=== PATIENT | female | born 1960 | race Hispanic/Latino ===

== ENCOUNTER 2018-06-26 12:31 | Inpatient (IN) | payer OTHER ==
--- NOTE | 2018-06-26 12:49 | ED PDOC ---
HPI: SOB/CHF/COPD Time Seen by Provider: 06/26/18 12:34 Chief Complaint (Provider): Shortness Of Breath History Per: Patient History/Exam Limitations: no limitations Onset/Duration Of Symptoms: Days (x2 months) Additional Complaint(s): 58 year old female with a PMHx of asthma, bowel obstruction, ovarian cancer, pneumonia, bronchitis, and thyroid disease, presenting for evaluation of gradually worsening shortness of breath x1 month. Patient reports she had bowel obstruction surgery late 04/2018 which she believes to be the cause of her gradually worsening shortness of breath, as well as her current edema. Patient s tates she usually uses Albuterol 3-4 times daily with relief, but over the past few days her symptoms have worsened and she is now unable to walk without becoming very short of breath. Patient states she went to urgent care yesterday and had a chest x-ray performed, but was told they would not be able to interpret the x-ray without a baseline to compare it to due to her power port. Of note, patient also reports she has been receiving chemotherapy for her recently diagnosed ovarian cancer at [facility] and has been having intermittent nausea since. Patient otherwise denies any current fevers, chills, chest pain, vomiting, diarrhea, dizziness, or urinary complaints. PMD: Dr. Nathan Mcdonald Oncologist: [facility] Past Medical History Reviewed: Historical Data, Nursing Documentation, Vital Signs - Medical History PMH: Arthritis (right knee), Asthma, Bronchitis, Hyperthyroidism, Hypothyroidism, Malignancy (ovarian), Obstructive Bowel, Pneumonia Denies: COPD, Emphysema, Pulmonary Embolism, Chronic Kidney Disease, Sleep Apnea - Surgical History Surgical History: No Surg Hx - Family History Family History: States: Unknown Family Hx - Social History Current smoker - smoking cessation education provided: No Alcohol: None Drugs: Denies - Immunization History Hx Influenza Vaccination: No - Home Medications Home Medications: Ambulatory Orders Medication Instructions Recorded Albuterol 0.083% [Albuterol 0.083% 3 ml IH Q4 PRN 06/26/18 Inhal Dina (2.5 mg/3 ml) UD] Apixaban [Eliquis] 5 mg PO Q12 06/26/18 Azithromycin [Z-Kartik] 250 mg PO ASDIR 06/26/18 Codeine Phosphate/Guaifenesin 10 ml PO Q6 PRN 06/26/18 [Codeine-Guaifen 10-100 mg/5 ml] HYDROmorphone [Dilaudid] 2 mg PO Q4 PRN 06/26/18 LORazepam [Ativan] 0.25 mg PO Q12 PRN 06/26/18 Levothyroxine Sodium [Synthroid] 300 mcg PO DAILY 06/26/18 Multivitamin [Multi-Vitamin Daily] 1 tab PO DAILY 06/26/18 Ondansetron [Zofran Tab] 8 mg PO Q8 PRN 06/26/18 Prochlorperazine [Compazine] 10 mg PO Q6 PRN 06/26/18 Sennosides [Senna] 1 tab PO Q12 06/26/18 Zolpidem Tartrate [Ambien Cr] 12.5 mg PO HS 06/26/18 traMADol [Ultram] 100 mg PO Q6 PRN 06/26/18 - Allergies Allergies/Adverse Reactions: Allergies Allergy/AdvReac Type Severity Reaction Status Date / Time cefepime Allergy SHORTNESS Verified 06/26/18 12:55 OF BREATH Review of Systems ROS Statement: Except As Marked, All Systems Reviewed And Found Negative Constitutional: Negative for: Fever, Chills Cardiovascular: Negative for: Chest Pain Respiratory: Positive for: Cough, Sputum Gastrointestinal: Negative for: Vomiting, Abdominal Pain, Diarrhea Genitourinary Female: Negative for: Dysuria, Frequency, Incontinence, Hematuria Skin: Positive for: Other (peripheral edema) Physical Exam - Reviewed Nursing Documentation Reviewed: Yes Vital Signs Reviewed: Yes - Physical Exam Appears: Positive for: Non-toxic, In Acute Distress (respiratory distress) Head Exam: Positive for: ATRAUMATIC, NORMAL INSPECTION, NORMOCEPHALIC Skin: Positive for: Normal Color, Warm, Dry. Negative for: Rash Eye Exam: Positive for: EOMI, Normal appearance, PERRL ENT: Positive for: Normal ENT Inspection Neck: Positive for: Normal, Painless ROM, Supple Cardiovascular/Chest: Positive for: Regular Rate, Rhythm. Negative for: Murmur Respiratory: Positive for: Crackles (faint bilaterally), Wheezing (diffuse bilaterally; heard anteriorly and posteriorly), Respiratory Distress, Other (tachypneic; good air entry bilaterally) Gastrointestinal/Abdominal: Positive for: Normal Exam, Soft. Negative for: Tenderness Back: Positive for: Normal Inspection. Negative for: L CVA Tenderness, R CVA Tenderness, Vertebral Tenderness Extremity: Positive for: Normal ROM, Pedal Edema (3+ pitting edema to bilateral lower extremities). Negative for: Tenderness, Calf Tenderness, Deformity Neurologic/Psych: Positive for: Alert, Oriented (x3). Negative for: Motor/Sensory Deficits - Laboratory Results Result Diagrams: 06/26/18 14:10 06/26/18 14:10 - ECG O2 Sat by Pulse Oximetry: 97 (RA) Pulse Ox Interpretation: Normal Medical Decision Making Medical Decision Makin Impression: Shortness of breath. Differential diagnoses include, but are not limited to acute asthma exacerbation, reactive airway disease, pneumonia, influenza, and PE secondary to history of PE and cancer. Plan: -VBG shock panel -EKG -BNP -CMP -CBC -CXR -Duoneb 3mL IH -Magnesium sulfuate 2gm IV -Solu-Medrol 125mg IVP -Zithromax 500mg IVPB -Blood culture -Influenza A B -US Duplex Lower Extremity -Reevaluation Scribe Attestation: Documented by Isidoro Rolle, acting as a scribe for Kajal Daniel MD. Provider Scribe Attestation: All medical record entries made by the Scribe were at my direction and personally dictated by me. I have reviewed the chart and agree that the record accurately reflects my personal performance of the history, physical exam, medical decision making, and the department course for this patient. I have also personally directed, reviewed, and agree with the discharge instructions and disposition. patient with comorbid conditions and various contributing factors to her shortness of breath, including h/o asthma, current anemia, recent URI as diagnosed by urgent care center. Patient already on Eliquis for PE diagnosed recently. US of JORJE pending. Will admit to med service (all her MDs are based out in [place] Disposition - Clinical Impression Clinical Impression: Acute bronchospasm, Anemia, Ovarian cancer - Patient ED Disposition Is Patient to be Admitted: Yes Doctor Will See Patient In The: Hospital - Disposition Disposition: Transfer of Care Disposition Time: 14:52 Condition: GUARDED - Pt Status Changed To: Hospital Disposition Of: Inpatient - Admit Certification Admit to Inpatient:: After my assessment, the patient will require hospitalization for at least two midnights. This is because of the severity of symptoms shown, intensity of services needed, and/or the medical risk in this patient being treated as an outpatient. - POA Present On Arrival: None
[2018-06-26] MEDS ORDERED: Albuterol-Ipratrop 3 mg / 0.5 (3 ml) UD INH STA ×4 (12:59→16:36)
[2018-06-26] MEDS ORDERED: Magnesium Sulfate 2 gm/50 ml 2 GM/50 ML BAG ONE (13:03)
[2018-06-26] MEDS ORDERED: Azithromycin 500 MG in Sodium Chloride 0.9% 250 ML IVPB STA (13:03)
[2018-06-26] MEDS ORDERED: Magnesium Sulfate 2 gm/50 ml 2 GM/50 ML BAG IV ONE (13:15)
[2018-06-26 14:01] LABS: VENOUS BLOOD GAS BASE EXCESS -8.1 mmol/L (0.0-2.0); VENOUS BLOOD GAS PCO2 91 mmHg (40-60); VENOUS BLOOD GAS PO2 50 mm/Hg (30-55); VENOUS BLOOD PH 7.04 (7.32-7.43)
[2018-06-26 14:18] LABS: BASO % 0.9 % (0.0-2.0); EOS # 0.2 K/uL (0.0-0.7); HEMOGLOBIN 8.6 g/dL (12.0-16.0); LYMPH # 0.6 K/uL (1.0-4.3); LYMPH % 14.8 % (20.0-40.0); MEAN CORPUSCULAR HEMOGLOBIN 30.7 pg (27.0-31.0); MEAN CORPUSCULAR HGB CONC 33.3 g/dL (33.0-37.0); MEAN PLATELET VOLUME 6.5 fl (7.2-11.7); MONO # 0.3 K/uL (0.0-0.8); MONO % 7.3 % (0.0-10.0); NEUT # 2.7 K/uL (1.8-7.0); NRBC % 0.4 % (0.0-0.0); RBC 2.8 Mil/uL (3.80-5.20); RED CELL DISTRIBUTION WIDTH 18.3 % (11.5-14.5); WHITE BLOOD COUNT 3.8 K/uL (4.8-10.8)
[2018-06-26 14:28] LABS: ALB/GLOB RATIO 1.2 (1.0-2.1); ALBUMIN 3.4 g/dL (3.5-5.0); ALT/SGPT 32 U/L (9-52); AST/SGOT 31 U/L (14-36); BLOOD UREA NITROGEN 8 mg/dl (7-17); GFR NON-AFRICAN AMERICAN > 60
--- NOTE | 2018-06-26 14:29 | RAD ---
Date of service: 06/26/2018 PROCEDURE: CHEST RADIOGRAPH, 1 VIEW HISTORY: shortness of breath, wheezing COMPARISON: 05/21/2014 FINDINGS: LUNGS: Clear. PLEURA: No pneumothorax or pleural fluid seen. CARDIOVASCULAR: No radiographic findings to suggest acute or significant cardiovascular disease. Venous access catheter in satisfactory position. No significant atherosclerotic change identified. OSSEOUS STRUCTURES: No significant abnormalities. VISUALIZED UPPER ABDOMEN: Normal. OTHER FINDINGS: None. IMPRESSION: No active disease.
[2018-06-26 14:39] LABS: B-TYPE NATRIURETIC PEPTIDE 445 pg/ml (0-900)
[2018-06-26] MEDS ORDERED: Azithromycin 500 MG IV IVPB ONE (15:17)
--- NOTE | 2018-06-26 15:51 | US ---
Date of service: 06/26/2018 PROCEDURE: Bilateral lower extremity venous duplex Doppler. HISTORY: h/o PE, bilateral swelling LE, COMPARISON: 05/21/2014 bilateral lower extremity duplex sonography TECHNIQUE: Bilateral common femoral, superficial femoral, popliteal and posterior tibial veins were evaluated. Flow was assessed with color Doppler, compressibility, assessment of phasic flow and augmentation response. FINDINGS: COMMON FEMORAL VEIN: Right CFV: Unremarkable. Left CFV: Unremarkable. SUPERFICIAL FEMORAL VEIN: Right SFV: Unremarkable. Left SFV: Unremarkable. POPLITEAL VEIN: Right Popliteal: Unremarkable. Left Popliteal: Unremarkable. POSTERIOR TIBIAL VEIN: Right PTV: Unremarkable. Left PTV: Unremarkable. OTHER FINDINGS: None. IMPRESSION: No evidence of deep venous thrombosis.
[2018-06-26] MEDS ORDERED: Albuterol-Ipratrop 3 mg / 0.5 (3 ml) UD ONE (17:27)
--- NOTE | 2018-06-26 19:37 | CARD ---
APPROVED REPORT Date of service: 06/26/2018 EKG Measurement Heart [id number] ID [id number] <Conclusion> Normal sinus rhythm Normal Electrocardiogram
[2018-06-26] MEDS: Albuterol-Ipratrop 3 mg / 0.5 (3 ml) UD INH SCH (20:02)
[2018-06-26] MEDS ORDERED: methylPREDNISolone 60 MG in Sodium Chloride 0.9% 50 ML IV SCH (21:00)
[2018-06-27] MEDS: Albuterol-Ipratrop 3 mg / 0.5 (3 ml) UD INH SCH ×4 (01:16→19:12)
[2018-06-27] MEDS: Levothyroxine 150 MCG TAB PO SCH (05:47)
[2018-06-27 06:19] LABS: BASO % 0.2 % (0.0-2.0); EOS % 0.1 % (0.0-4.0); HEMOGLOBIN 9.3 g/dL (12.0-16.0); LYMPH # 0.4 K/uL (1.0-4.3); LYMPH % 10.4 % (20.0-40.0); MEAN CELL VOLUME 91.4 fl (81.0-99.0); MEAN CORPUSCULAR HEMOGLOBIN 30.6 pg (27.0-31.0); MEAN CORPUSCULAR HGB CONC 33.4 g/dL (33.0-37.0); MEAN PLATELET VOLUME 6.7 fl (7.2-11.7); MONO # 0.1 K/uL (0.0-0.8); MONO % 1.4 % (0.0-10.0); NEUT # 3.2 K/uL (1.8-7.0); NEUT % 87.9 % (50.0-75.0); NRBC % 0.3 % (0.0-0.0); RBC 3.03 Mil/uL (3.80-5.20); RED CELL DISTRIBUTION WIDTH 19.1 % (11.5-14.5); WHITE BLOOD COUNT 3.7 K/uL (4.8-10.8)
[2018-06-27 06:28] LABS: B-TYPE NATRIURETIC PEPTIDE 1200 pg/ml (0-900)
[2018-06-27 06:36] LABS: ALB/GLOB RATIO 1.2 (1.0-2.1); ALBUMIN 3.5 g/dL (3.5-5.0); ALT/SGPT 26 U/L (9-52); AST/SGOT 32 U/L (14-36); BLOOD UREA NITROGEN 7 mg/dl (7-17); CALCIUM 9.2 mg/dL (8.4-10.2); GFR NON-AFRICAN AMERICAN > 60; HDL CHOLESTEROL 43 MG/DL (30-70)
--- NOTE | 2018-06-27 08:18 | CP.PCM.HP ---
History of Present Illness - History of Present Illness History of Present Illness: 58 year old female with a PMHx of asthma, bowel obstruction, ovarian cancer, pneumonia, bronchitis and hypothyroidism presenting to ED for evaluation of gradually worsening shortness of breath x1 month. Patient states she usually uses Albuterol 3-4 times daily with relief, but over the past few days her symptoms have worsened and she is now unable to walk without becoming very short of breath. She reported she had bowel obstruction surgery on 04/2018 and since then has having sob. Patient also reports she has been receiving chemotherapy for her recently diagnosed ovarian cancer at [facility]. Otherwise denies any current fevers, chills, chest pain, vomiting, diarrhea, dizziness, or urinary complaints. PMD: Dr. Nathan Mcdonald Oncologist: [facility] PMH: Arthritis (right knee), Asthma, Bronchitis, Hyperthyroidism, Hypothyroidism, Malignancy (ovarian), Obstructive Bowel, Pneumonia PSH: bowel obstruction last April Meds: see bellow Allergies: cefepime FMH: noncontributory SH: never smoked, denies etoh or ilict drugs Present on Admission - Present on Admission Any Indicators Present on Admission: No Review of Systems - Review of Systems All systems: reviewed and no additional remarkable complaints except (HPI) Past Patient History - Infectious Disease Hx of Infectious Diseases: None - Past Medical History & Family History Past Medical History?: Yes - Past Social History Smoking Status: Never Smoked - CARDIAC Hx Cardiac Disorders: No - PULMONARY Hx Respiratory Disorders: Yes Hx Asthma: Yes Hx Bronchitis: Yes Hx Pneumonia: Yes - NEUROLOGICAL Hx Neurological Disorder: No - HEENT Hx HEENT Problems: No - RENAL Hx Chronic Kidney Disease: No - ENDOCRINE/METABOLIC Hx Endocrine Disorders: Yes Hx Hypothyroidism: Yes - HEMATOLOGICAL/ONCOLOGICAL Hx Blood Disorders: Yes Hx Anemia: Yes - INTEGUMENTARY Hx Dermatological Problems: Yes - MUSCULOSKELETAL/RHEUMATOLOGICAL Hx Musculoskeletal Disorders: No Hx Falls: No - GASTROINTESTINAL Hx Gastrointestinal Disorders: Yes Other/Comment: Bariatric surgery - GENITOURINARY/GYNECOLOGICAL Hx Genitourinary Disorders: No - PSYCHIATRIC Hx Psychophysiologic Disorder: No Hx Substance Use: No - SURGICAL HISTORY Hx Surgeries: Yes Hx Gastric Bypass Surgery: Yes (Sleeve) Hx Herniorrhaphy: Yes Other/Comment: bowel/hernia surgery-06/11/18 - ANESTHESIA Hx Anesthesia: Yes Hx Anesthesia Reactions: No Hx Malignant Hyperthermia: No Meds Allergies/Adverse Reactions: Allergies Allergy/AdvReac Type Severity Reaction Status Date / Time cefepime Allergy SHORTNESS Verified 06/26/18 12:55 OF BREATH Physical Exam - Constitutional Appears: No Acute Distress Additional comments: Morbid obese - Head Exam Head Exam: NORMAL INSPECTION - Eye Exam Eye Exam: EOMI - Respiratory Exam Respiratory Exam: Decreased Breath Sounds, Rhonchi, Wheezes. absent: Respiratory Distress - Cardiovascular Exam Cardiovascular Exam: REGULAR RHYTHM, +S1, +S2 - GI/Abdominal Exam GI & Abdominal Exam: Soft, Tenderness (mild on incisions site). absent: Guarding - Extremities Exam Extremities exam: Positive for: pedal edema. Negative for: calf tenderness - Neurological Exam Neurological exam: Alert, CN II-XII Intact, Oriented x3 - Skin Skin Exam: Dry, Warm Results - Vital Signs Recent Vital Signs: Last Vital Signs Temp 98.1 F 06/27/18 08:00 Pulse 69 06/27/18 08:00 Resp 18 06/27/18 08:00 BP 137/68 06/27/18 08:00 Pulse Ox 95 06/27/18 08:00 - Labs Result Diagrams: 06/27/18 06:00 06/27/18 06:00 Labs: Laboratory Results - last 24 hr 06/26/18 06/26/18 06/26/18 13:54 14:10 14:10 WBC 3.8 L RBC 2.80 L Hgb 8.6 L Hct 25.7 L MCV 92.0 MCH 30.7 MCHC 33.3 RDW 18.3 H Plt Count 227 MPV 6.5 L Neut % (Auto) 72.0 Lymph % (Auto) 14.8 L [place] % (Auto) 7.3 Eos % (Auto) 5.0 H Baso % (Auto) 0.9 Neut # (Auto) 2.7 Lymph # (Auto) 0.6 L [place] # (Auto) 0.3 Eos # (Auto) 0.2 Baso # (Auto) 0.0 pO2 50 VBG pH 7.04 L* VBG pCO2 91 H* VBG HCO3 17.7 VBG Total CO2 27.4 VBG O2 Sat (Calc) 81.6 H VBG Base Excess -8.1 L Sodium 124.0 L 139 Chloride 103.0 105 Glucose 104 Lactate 1.2 FiO2 21.0 Crit Value Called To Gina reis Crit Value Called By 23 Crit Value Read Back Y Blood Gas Notified Time 1400 Potassium 4.0 Carbon Dioxide 28 Anion Gap 10 BUN 8 Creatinine 0.6 L Est GFR ( Amer) > 60 Est GFR (Non-Af Amer) > 60 Random Glucose 101 Calcium 9.0 Total Bilirubin 1.0 AST 31 ALT 32 Alkaline Phosphatase 89 Troponin I < 0.0120 NT-Pro-B Natriuret Pep 445 Total Protein 6.1 L Albumin 3.4 L Globulin 2.8 Albumin/Globulin Ratio 1.2 Triglycerides Cholesterol HDL Cholesterol TSH 3rd Generation Influenza Typ A,B (EIA) 06/26/18 06/27/18 06/27/18 14:40 06:00 06:00 WBC 3.7 L RBC 3.03 L Hgb 9.3 L Hct 27.7 L MCV 91.4 MCH 30.6 MCHC 33.4 RDW 19.1 H Plt Count 252 MPV 6.7 L Neut % (Auto) 87.9 H Lymph % (Auto) 10.4 L [place] % (Auto) 1.4 Eos % (Auto) 0.1 Baso % (Auto) 0.2 Neut # (Auto) 3.2 Lymph # (Auto) 0.4 L [place] # (Auto) 0.1 Eos # (Auto) 0.0 Baso # (Auto) 0.0 pO2 VBG pH VBG pCO2 VBG HCO3 VBG Total CO2 VBG O2 Sat (Calc) VBG Base Excess Sodium 141 Chloride 103 Glucose Lactate FiO2 Crit Value Called To Crit Value Called By Crit Value Read Back Blood Gas Notified Time Potassium 4.5 Carbon Dioxide 29 Anion Gap 14 BUN 7 Creatinine 0.6 L Est GFR ( Amer) > 60 Est GFR (Non-Af Amer) > 60 Random Glucose 159 H Calcium 9.2 Total Bilirubin 0.9 AST 32 ALT 26 Alkaline Phosphatase 90 Troponin I NT-Pro-B Natriuret Pep 1200 H Total Protein 6.5 Albumin 3.5 Globulin 3.0 Albumin/Globulin Ratio 1.2 Triglycerides 125 Cholesterol 195 HDL Cholesterol 43 TSH 3rd Generation 6.47 H Influenza Typ A,B (EIA) Negative for flu a/b Assessment & Plan - Assessment and Plan (Free Text) Assessment: 58 year old female with a PMHx of asthma, bowel obstruction, ovarian cancer, pneumonia and bronchitis admitted with dyspnea. Plan: - afebrile, VSS - leukopenia and anemia noted likely secondary to chemo - CXR negative for active lung disease - EKG: normal - Pulmonology consulted, input appreciated - continue duonebs ok and prn - IV rocephin and azithromycin - continue home meds - f/u labs in am, cultures pending - rest of plan as ordered Case seen and examined with Dr Boyeruez
[2018-06-27] MEDS ORDERED: Albuterol-Ipratrop 3 mg / 0.5 (3 ml) UD INH STA (08:19)
[2018-06-27 08:35] LABS: LDL CHOLESTEROL 143 mg/dL (0-129)
[2018-06-27] MEDS: Multivitamin With Minerals Tab PO SCH (08:48)
[2018-06-27] MEDS ORDERED: LEVOTHYROXINE SODIUM 300 MCG PO SCH (09:00)
[2018-06-27] MEDS ORDERED: Enoxaparin 40 mg Syringe SC SCH (09:00)
[2018-06-27] MEDS ORDERED: Patient's Own Med (Multivitamin [Multi-Vitamin Daily] 1 TAB) PO SCH (09:00)
[2018-06-27] MEDS: Azithromycin 500 MG in Sodium Chloride 0.9% 250 ML IVPB SCH (13:37)
[2018-06-27] MEDS: Promethazine/Cod 6.25mg-10mg/5ml Syr UD PO PRN ×2 (16:45→23:49)
[2018-06-28] MEDS: Albuterol-Ipratrop 3 mg / 0.5 (3 ml) UD INH SCH ×5 (01:10→20:10)
[2018-06-28] MEDS ORDERED: HYDROmorphone 1 mg/ml ISec IVP PRN (03:48)
[2018-06-28 05:41] LABS: BASO % 0.1 % (0.0-2.0); HEMOGLOBIN 8.6 g/dL (12.0-16.0); LYMPH # 0.5 K/uL (1.0-4.3); LYMPH % 10.3 % (20.0-40.0); MEAN CELL VOLUME 93.1 fl (81.0-99.0); MEAN CORPUSCULAR HEMOGLOBIN 30.4 pg (27.0-31.0); MEAN CORPUSCULAR HGB CONC 32.7 g/dL (33.0-37.0); MEAN PLATELET VOLUME 6.5 fl (7.2-11.7); MONO # 0.1 K/uL (0.0-0.8); MONO % 2.5 % (0.0-10.0); NEUT # 4.2 K/uL (1.8-7.0); NEUT % 87.1 % (50.0-75.0); NRBC % 0.1 % (0.0-0.0); RBC 2.81 Mil/uL (3.80-5.20); RED CELL DISTRIBUTION WIDTH 19.4 % (11.5-14.5); WHITE BLOOD COUNT 4.8 K/uL (4.8-10.8)
[2018-06-28 06:10] LABS: ALB/GLOB RATIO 1.3 (1.0-2.1); ALBUMIN 3.6 g/dL (3.5-5.0); ALT/SGPT 31 U/L (9-52); AST/SGOT 40 U/L (14-36); BLOOD UREA NITROGEN 15 mg/dl (7-17); CALCIUM 9.4 mg/dL (8.4-10.2); GFR NON-AFRICAN AMERICAN > 60
[2018-06-28] MEDS: Promethazine/Cod 6.25mg-10mg/5ml Syr UD PO PRN (06:49)
[2018-06-28] MEDS ORDERED: Albuterol 0.042% Inhal Sol (1.25 mg/3 mL) UD INH ONE (06:51)
[2018-06-28] MEDS ORDERED: Albuterol-Ipratrop 3 mg / 0.5 (3 ml) UD INH PRN (07:28)
[2018-06-28] MEDS: Multivitamin With Minerals Tab PO SCH (09:26)
[2018-06-28] MEDS: Levothyroxine 150 MCG TAB PO SCH (09:27)
[2018-06-28] MEDS: Azithromycin 500 MG in Sodium Chloride 0.9% 250 ML IVPB SCH (09:28)
--- NOTE | 2018-06-28 10:15 | CP.PCM.PN ---
Subjective - Date & Time of Evaluation Date of Evaluation: 06/28/18 Time of Evaluation: 08:16 - Subjective Subjective: patient seen and examined this morning at bedside coughing, c/o cough during night and moving flegm, no chest pain or sob afebrile Objective - Vital Signs/Intake and Output Vital Signs (last 24 hours): Temp Pulse Resp BP Pulse Ox 97.4 F L 60 20 134/72 94 L 06/28/18 08:48 06/28/18 08:48 06/28/18 08:48 06/28/18 08:48 06/28/18 08:48 - Medications Medications: Current Medications Acetaminophen (Tylenol 325mg Tab) 650 mg PO Q6 PRN PRN Reason: Headache Last Admin: 06/27/18 18:11 Dose: 650 mg Albuterol/Ipratropium (Duoneb 3 Mg/0.5 Mg (3 Ml) Ud) 3 ml INH RQ6 OK Last Admin: 06/28/18 07:36 Dose: 3 ml Albuterol/Ipratropium (Duoneb 3 Mg/0.5 Mg (3 Ml) Ud) 3 ml INH RQ4 PRN PRN Reason: Shortness of Breath Apixaban (Eliquis) 5 mg PO Q12 OK; Protocol Last Admin: 06/28/18 09:27 Dose: 5 mg Benzonatate (Tessalon Perles) 100 mg PO Q8 PRN PRN Reason: Cough Last Admin: 06/28/18 09:29 Dose: 100 mg Hydromorphone HCl (Dilaudid) 1 mg IVP Q4 PRN PRN Reason: Pain, severe (8-10) Azithromycin 500 mg/ Sodium (Chloride) 250 mls @ 250 mls/hr IVPB DAILY OK; Protocol Last Admin: 06/28/18 09:28 Dose: 250 mls/hr Ketorolac Tromethamine (Toradol) 30 mg IVP Q6 PRN PRN Reason: Pain, moderate (4-7) Last Admin: 06/28/18 06:29 Dose: 30 mg Levothyroxine Sodium (Synthroid) 300 mcg PO ACB@0630 OK Last Admin: 06/28/18 09:27 Dose: 300 mcg Lorazepam (Ativan) 0.25 mg PO Q12 PRN PRN Reason: Anxiety Last Admin: 06/26/18 22:25 Dose: 0.25 mg Methylprednisolone (Solu-Medrol) 60 mg IVP Q12 [facility] Last Admin: 06/28/18 09:27 Dose: 60 mg Multivitamins/Minerals (Therapeutic-M Tab) 1 tab PO DAILY [facility] Last Admin: 06/28/18 09:26 Dose: 1 tab Ondansetron HCl (Zofran Tab) 8 mg PO Q8 PRN PRN Reason: Nausea/Vomiting Prochlorperazine (Compazine Tab) 10 mg PO Q6 PRN PRN Reason: Nausea/Vomiting Promethazine HCl/Codeine (Phenergan/Codeine Oral Syrup) 10 ml PO Q6 PRN PRN Reason: Cough Last Admin: 06/28/18 06:49 Dose: 10 ml Sennosides (Senokot Tab) 8.6 mg PO Q12 [facility] Last Admin: 06/28/18 09:26 Dose: 8.6 mg Zolpidem Tartrate (Ambien) 5 mg PO HS [facility] Last Admin: 06/27/18 23:19 Dose: 5 mg - Labs Labs: 06/28/18 05:00 06/28/18 05:00 - Constitutional Appears: No Acute Distress - Head Exam Head Exam: NORMAL INSPECTION - Respiratory Exam Respiratory Exam: Decreased Breath Sounds, Rhonchi, Wheezes. absent: Respiratory Distress - Cardiovascular Exam Cardiovascular Exam: REGULAR RHYTHM, +S1, +S2 - GI/Abdominal Exam GI & Abdominal Exam: Soft, Tenderness (mild at incision sites, bruises noted also at incision sites). absent: Distended Additional comments: obese - Extremities Exam Extremities Exam: absent: Pedal Edema - Neurological Exam Neurological Exam: Alert, Awake, Oriented x3 - Skin Skin Exam: Dry, Warm Assessment and Plan - Assessment and Plan (Free Text) Assessment: 58 year old female with a PMHx of asthma, bowel obstruction, ovarian cancer, pneumonia and bronchitis admitted with severe sob and hypercapnia Plan: - afebrile, VSS - CXR negative for active lung disease - EKG: normal - Pulmonology consulted, input appreciated - continue duonebs ok and prn - taper steroids to 40 IV q12 - IV azithromycin - continue home meds - f/u labs in am, cultures pending - rest of plan as ordered Case seen and examined with Dr Santos
--- NOTE | 2018-06-28 11:28 | CP.PCM.CON ---
History of Present Illness - History of Present Illness History of Present Illness: Asked to evaluate this 58 year old obese female asthmatic because of cough with SOB and hypercapnia. She has a long history of bronchial asthma for which she has been using a rescue inhaler with increasing frequency. She does have a co mplicated medical/surgical history and suffers from recurrent ovarian cancer and recently underwent surgery because of intestinal obstruction with repair of an abdominal hernia at the same time. Since her surgey she has been more immobilized and has noted more difficulty with SOB. Recently she has begun having a congested cough with expectoration of grossly purulent appearing sputum. She has also noted feverish feeling with accompanying chills and sweats. No chest pain, but left flank pain has developed with the coughing. She does experience seasonal related episodes of bronchitis in the past, usually in the fall. Review of Systems - Constitutional Constitutional: Chills, Fever, Snoring - Respiratory Respiratory: Cough, Dyspnea, Wheezing, Chest Congestion, Change in Mucous Color, Pain with Coughing - Integumentary Integumentary: Swelling (increased swelling of feet) Past Patient History - Infectious Disease Hx of Infectious Diseases: None - Past Medical History & Family History Past Medical History?: Yes - Past Social History Smoking Status: Never Smoked Chewing Tobacco Use: No Cigar Use: No Alcohol: Social Drugs: Denies Home Situation {Lives}: Alone - CARDIAC Hx Cardiac Disorders: No - PULMONARY Hx Asthma: Yes Hx Bronchitis: Yes Hx Pneumonia: Yes (multiple times) Hx Pulmonary Embolism: No Hx Sleep Apnea: No - NEUROLOGICAL Hx Neurological Disorder: No - HEENT Hx HEENT Problems: No - RENAL Hx Chronic Kidney Disease: No - ENDOCRINE/METABOLIC Hx Hypothyroidism: Yes - HEMATOLOGICAL/ONCOLOGICAL Hx Anemia: Yes Hx Cancer: Yes (ovarian-recurrent/metastatic) - INTEGUMENTARY Hx Dermatological Problems: No - MUSCULOSKELETAL/RHEUMATOLOGICAL Hx Arthritis: Yes (knee) Hx Falls: No - GASTROINTESTINAL Other/Comment: Bariatric surgery - GENITOURINARY/GYNECOLOGICAL Hx Genitourinary Disorders: No - PSYCHIATRIC Hx Psychophysiologic Disorder: No Hx Substance Use: No - SURGICAL HISTORY Hx Surgeries: Yes Hx Gastric Bypass Surgery: Yes (Sleeve) Hx Herniorrhaphy: Yes Other/Comment: bowel/hernia surgery-06/11/18 - ANESTHESIA Hx Anesthesia: Yes Hx Anesthesia Reactions: No Hx Malignant Hyperthermia: No Meds Allergies/Adverse Reactions: Allergies Allergy/AdvReac Type Severity Reaction Status Date / Time cefepime Allergy SHORTNESS Verified 06/26/18 12:55 OF BREATH - Medications Medications: Current Medications Acetaminophen (Tylenol 325mg Tab) 650 mg PO Q6 PRN PRN Reason: Headache Last Admin: 06/27/18 18:11 Dose: 650 mg Albuterol/Ipratropium (Duoneb 3 Mg/0.5 Mg (3 Ml) Ud) 3 ml INH RQ6 [facility] Last Admin: 06/28/18 07:36 Dose: 3 ml Albuterol/Ipratropium (Duoneb 3 Mg/0.5 Mg (3 Ml) Ud) 3 ml INH RQ4 PRN PRN Reason: Shortness of Breath Apixaban (Eliquis) 5 mg PO Q12 [facility]; Protocol Last Admin: 06/28/18 09:27 Dose: 5 mg Benzonatate (Tessalon Perles) 100 mg PO Q8 PRN PRN Reason: Cough Last Admin: 06/28/18 09:29 Dose: 100 mg Hydromorphone HCl (Dilaudid) 1 mg IVP Q4 PRN PRN Reason: Pain, severe (8-10) Azithromycin 500 mg/ Sodium (Chloride) 250 mls @ 250 mls/hr IVPB DAILY [facility]; Protocol Last Admin: 06/28/18 09:28 Dose: 250 mls/hr Ketorolac Tromethamine (Toradol) 30 mg IVP Q6 PRN PRN Reason: Pain, moderate (4-7) Last Admin: 06/28/18 06:29 Dose: 30 mg Levothyroxine Sodium (Synthroid) 300 mcg PO ACB@0630 [facility] Last Admin: 06/28/18 09:27 Dose: 300 mcg Lorazepam (Ativan) 0.25 mg PO Q12 PRN PRN Reason: Anxiety Last Admin: 06/26/18 22:25 Dose: 0.25 mg Methylprednisolone (Solu-Medrol) 60 mg IVP Q12 [facility] Last Admin: 06/28/18 09:27 Dose: 60 mg Multivitamins/Minerals (Therapeutic-M Tab) 1 tab PO DAILY [facility] Last Admin: 06/28/18 09:26 Dose: 1 tab Ondansetron HCl (Zofran Tab) 8 mg PO Q8 PRN PRN Reason: Nausea/Vomiting Prochlorperazine (Compazine Tab) 10 mg PO Q6 PRN PRN Reason: Nausea/Vomiting Promethazine HCl/Codeine (Phenergan/Codeine Oral Syrup) 10 ml PO Q6 PRN PRN Reason: Cough Last Admin: 06/28/18 06:49 Dose: 10 ml Sennosides (Senokot Tab) 8.6 mg PO Q12 [facility] Last Admin: 06/28/18 09:26 Dose: 8.6 mg Zolpidem Tartrate (Ambien) 5 mg PO HS [facility] Last Admin: 06/27/18 23:19 Dose: 5 mg Physical Exam - Additional Findings Additional findings: Obese female lying in bed with pain on coughing in the left flank. Awake , alert, cooperative with exam. Memory intact, no focal motor weakness. Conjunctivae pink and non-icteric. Pharynx pink and moist w/o exudate. Neck supple with midline trachea, no cervical adenopathy, no visible JVD, no carotid bruits. No palpable thyroid enlargement. Nares patent bilaterally. Chest: No tenderness on palpation of the chest, no dullness on percussion. [place] present right anterior chest wall. Lungs: breath sounds are well heard bilaterally without audible wheezes. Scattered sonorous rhonchi are heard bilaterally with a prolonged expiratory phase noted. No distinct wheezes are heard. No bronchial breathing or egophony. Heart: regular, somewhat distant HS w/o murmur heard. Abdomen: obese, fleshy, non-tender with hematoma noted in the left upper quadrant laterally. Lower extremities: swelling both ankles and distal calfs (R>L) with tenderness on palpation. + calf tenderness posteriorly on right, no palpable venous cords, negative Rahel's sign, pulses in ankles not felt. No cyanosis or erythema. Results - Vital Signs Recent Vital Signs: Last Vital Signs Temp 97.4 F L 06/28/18 08:48 Pulse 95 H 06/28/18 09:00 Resp 20 06/28/18 08:48 BP 134/72 06/28/18 08:48 Pulse Ox 94 L 06/28/18 08:48 - Labs Result Diagrams: 06/28/18 05:00 06/28/18 05:00 Labs: Laboratory Results - last 24 hr 06/28/18 06/28/18 05:00 05:00 WBC 4.8 RBC 2.81 L Hgb 8.6 L Hct 26.2 L MCV 93.1 MCH 30.4 MCHC 32.7 L RDW 19.4 H Plt Count 276 MPV 6.5 L Neut % (Auto) 87.1 H Lymph % (Auto) 10.3 L [place] % (Auto) 2.5 Eos % (Auto) 0.0 Baso % (Auto) 0.1 Neut # (Auto) 4.2 Lymph # (Auto) 0.5 L [place] # (Auto) 0.1 Eos # (Auto) 0.0 Baso # (Auto) 0.0 Sodium 140 Potassium 4.7 Chloride 103 Carbon Dioxide 30 Anion Gap 12 BUN 15 Creatinine 0.7 Est GFR ( Amer) > 60 Est GFR (Non-Af Amer) > 60 Random Glucose 145 H Calcium 9.4 Total Bilirubin 0.7 AST 40 H D ALT 31 Alkaline Phosphatase 83 Total Protein 6.4 Albumin 3.6 Globulin 2.8 Albumin/Globulin Ratio 1.3 Assessment & Plan (1) Acute bronchitis Status: Acute Priority: High (2) Asthma exacerbation, non-allergic Status: Acute Priority: High (3) Chronic venous insufficiency Status: Chronic Priority: Medium (4) Anemia Status: Chronic Priority: High (5) Ovarian cancer Status: Chronic Priority: High (6) 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 Avoidance of sedating medications as possible with presence of hypercapnea and suspected Obesity/Hypoventilation Syndrome. Antibiotic therapy for suppurative bronchitis. Taper and discontinue steroids IGOR.
[2018-06-28] MEDS ORDERED: Sodium Chloride 3% for Inhalation 4 ML VIAL.NEB IH PRN (12:29)
[2018-06-28] MEDS: guaiFENesin-DM 600-30 mg ER Tab PO SCH (21:13)
[2018-06-28] MEDS: MethylPREDNISolone 40 mg Vial IVP SCH (21:14)
[2018-06-29] MEDS: Levothyroxine 150 MCG TAB PO SCH (05:42)
[2018-06-29] MEDS: Albuterol-Ipratrop 3 mg / 0.5 (3 ml) UD INH SCH ×4 (07:23→19:29)
--- NOTE | 2018-06-29 08:40 | US ---
Date of service: 06/28/2018 HISTORY: abdominal hematoma COMPARISON: None. TECHNIQUE: Sonographic evaluation of the abdomen. FINDINGS: LIVER: Measures 22.8 cm. Normal echogenicity of the liver parenchyma. No mass. No intrahepatic bile duct dilatation. GALLBLADDER: Contracted gallbladder with cholelithiasis. Sonographic Herndon's sign was not elicited. COMMON BILE DUCT: Measures 5 mm. No stones. No dilatation. PANCREAS: Unremarkable as visualized. No mass. No ductal dilatation. RIGHT KIDNEY: Measures 12.1 x 5.5 x 4.6cm. Normal echogenicity. Nonobstructive midpole calculus measuring 1.2 cm. Bilobed lower pole cyst measuring 7.5 x 4.3 x 5.7 cm. No mass, or hydronephrosis. LEFT KIDNEY: Measures 11.1 x 4.2 x 3.9cm. Normal echogenicity. Upper pole cyst measuring 2.3 x 2.2 x 2.3 cm. No calculus, mass, or hydronephrosis. SPLEEN: Enlarged, measuring 16.2 cm. AORTA: No aneurysmal dilatation. IVC: Unremarkable. OTHER FINDINGS: No significant finding in the area of interest (left flank) subcutaneous tissues. IMPRESSION: No significant finding in the area of interest (left flank) subcutaneous tissues. Hepatic splenomegaly. Cholelithiasis without sonographic evidence of acute cholecystitis. Nonobstructive right nephrolithiasis. Bilateral renal cysts.
[2018-06-29] MEDS: guaiFENesin-DM 600-30 mg ER Tab PO SCH ×2 (09:38→20:58)
[2018-06-29] MEDS: MethylPREDNISolone 40 mg Vial IVP SCH ×2 (09:39→21:00)
[2018-06-29] MEDS: Multivitamin With Minerals Tab PO SCH (09:40)
[2018-06-29] MEDS: Azithromycin 500 MG in Sodium Chloride 0.9% 250 ML IVPB SCH (09:40)
--- NOTE | 2018-06-29 12:10 | CP.PCM.PN ---
Subjective - Date & Time of Evaluation Date of Evaluation: 06/29/18 Time of Evaluation: 12:05 - Subjective Subjective: Lying in bed, congested cough noted. No shortness of breath at rest. Able to ambulate with PT yesterday. Remains afebrile, mildly hypertensive, well oxygenated. Sputum specimen cup at bedside, still empty. Had a poor night sleep because of cough. Cough does seem more productive now with Mucinex. Patient claims sputum has become darK yellow in color now. Relates presence of blood in urine. Rhonchi are present throughout both lungs. Expiratory phase is prolonged w/o audible wheezing. No areas of bronchial breathing heard. Dependant edema unchanged, no cyanosis. UA plus culture. CPT using flutter valve device. Will not change antibiotic at this time and monitor. Reduce solumedrol to 30 Q12H tomorrow AM. Objective - Vital Signs/Intake and Output Vital Signs (last 24 hours): Temp Pulse Resp BP Pulse Ox 98.0 F 58 L 18 149/80 96 06/29/18 08:00 06/29/18 08:00 06/29/18 08:00 06/29/18 08:00 06/29/18 08:00 - Medications Medications: Current Medications Acetaminophen (Tylenol 325mg Tab) 650 mg PO Q6 PRN PRN Reason: Headache Last Admin: 06/29/18 06:03 Dose: 650 mg Albuterol/Ipratropium (Duoneb 3 Mg/0.5 Mg (3 Ml) Ud) 3 ml INH RQ4 PRN PRN Reason: Shortness of Breath Albuterol/Ipratropium (Duoneb 3 Mg/0.5 Mg (3 Ml) Ud) 3 ml INH RQID [facility] Last Admin: 06/29/18 11:23 Dose: 3 ml Apixaban (Eliquis) 5 mg PO Q12 [facility]; Protocol Last Admin: 06/29/18 09:38 Dose: 5 mg Benzonatate (Tessalon Perles) 200 mg PO Q8 PRN PRN Reason: Cough Guaifenesin/Dextromethorphan (Mucinex-Dm 600-30 Mg) 2 tab PO Q12 [facility] Last Admin: 06/29/18 09:38 Dose: 2 tab Hydromorphone HCl (Dilaudid) 1 mg IVP Q4 PRN PRN Reason: Pain, severe (8-10) Last Admin: 06/29/18 09:43 Dose: 1 mg Azithromycin 500 mg/ Sodium (Chloride) 250 mls @ 250 mls/hr IVPB DAILY [facility]; Protocol Last Admin: 06/29/18 09:40 Dose: 250 mls/hr Methylprednisolone 30 mg/ (Sodium Chloride) 50 mls @ 100 mls/hr IV Q12 [facility] Ketorolac Tromethamine (Toradol) 30 mg IVP Q6 PRN PRN Reason: Pain, moderate (4-7) Last Admin: 06/29/18 02:20 Dose: 30 mg Levothyroxine Sodium (Synthroid) 300 mcg PO ACB@0630 [facility] Last Admin: 06/29/18 05:42 Dose: 300 mcg Lorazepam (Ativan) 0.25 mg PO Q12 PRN PRN Reason: Anxiety Last Admin: 06/26/18 22:25 Dose: 0.25 mg Methylprednisolone (Solu-Medrol) 40 mg IVP Q12 [facility] Stop: 06/29/18 23:59 Last Admin: 06/29/18 09:39 Dose: 40 mg Methylprednisolone (Solu-Medrol) 30 mg IVP Q12 [facility] Multivitamins/Minerals (Therapeutic-M Tab) 1 tab PO DAILY [facility] Last Admin: 06/29/18 09:40 Dose: 1 tab Ondansetron HCl (Zofran Tab) 8 mg PO Q8 PRN PRN Reason: Nausea/Vomiting Prochlorperazine (Compazine Tab) 10 mg PO Q6 PRN PRN Reason: Nausea/Vomiting Sennosides (Senokot Tab) 8.6 mg PO Q12 [facility] Last Admin: 06/29/18 09:38 Dose: 8.6 mg Zolpidem Tartrate (Ambien) 5 mg PO HS [facility] Last Admin: 06/28/18 21:18 Dose: 5 mg - Labs Labs: 06/28/18 05:00 06/28/18 05:00 Assessment and Plan (1) Acute bronchitis Status: Acute (2) Asthma exacerbation, non-allergic Status: Acute (3) Chronic venous insufficiency Status: Chronic (4) Anemia Status: Chronic (5) Ovarian cancer Status: Chronic (6) 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
[2018-06-29 12:35] LABS: VENOUS BLOOD GAS BASE EXCESS 6.4 mmol/L (0.0-2.0); VENOUS BLOOD GAS PCO2 47 mmHg (40-60); VENOUS BLOOD GAS PO2 26 mm/Hg (30-55); VENOUS BLOOD PH 7.43 (7.32-7.43)
[2018-06-29] MEDS ORDERED: Epoetin Alfa 20000 UNIT/ML (RENAL DOSE) SC ONE (17:27)
--- NOTE | 2018-06-29 17:27 | CP.PCM.PN ---
Subjective - Date & Time of Evaluation Date of Evaluation: 06/29/18 Time of Evaluation: 17:12 - Subjective Subjective: Patient still has problems with breathing Has occasional wheeze. Has productive cough Has no fever Noted increasing leg edema. Labs WBC 4.8 Hgb 8.6 Objective - Vital Signs/Intake and Output Vital Signs (last 24 hours): Temp Pulse Resp BP Pulse Ox 98.2 F 62 20 147/88 97 06/29/18 15:49 06/29/18 15:49 06/29/18 15:49 06/29/18 15:49 06/29/18 15:49 - Medications Medications: Current Medications Acetaminophen (Tylenol 325mg Tab) 650 mg PO Q6 PRN PRN Reason: Headache Last Admin: 06/29/18 06:03 Dose: 650 mg Albuterol/Ipratropium (Duoneb 3 Mg/0.5 Mg (3 Ml) Ud) 3 ml INH RQ4 PRN PRN Reason: Shortness of Breath Albuterol/Ipratropium (Duoneb 3 Mg/0.5 Mg (3 Ml) Ud) 3 ml INH RQID [facility] Last Admin: 06/29/18 16:15 Dose: 3 ml Apixaban (Eliquis) 5 mg PO Q12 [facility]; Protocol Last Admin: 06/29/18 09:38 Dose: 5 mg Benzonatate (Tessalon Perles) 200 mg PO Q8 PRN PRN Reason: Cough Guaifenesin/Dextromethorphan (Mucinex-Dm 600-30 Mg) 2 tab PO Q12 [facility] Last Admin: 06/29/18 09:38 Dose: 2 tab Hydromorphone HCl (Dilaudid) 1 mg IVP Q4 PRN PRN Reason: Pain, severe (8-10) Last Admin: 06/29/18 15:17 Dose: 1 mg Azithromycin 500 mg/ Sodium (Chloride) 250 mls @ 250 mls/hr IVPB DAILY [facility]; Protocol Last Admin: 06/29/18 09:40 Dose: 250 mls/hr Ketorolac Tromethamine (Toradol) 30 mg IVP Q6 PRN PRN Reason: Pain, moderate (4-7) Last Admin: 06/29/18 13:10 Dose: 30 mg Lactulose (Enulose) 10 gm PO ONCE ONE Stop: 06/29/18 19:31 Levothyroxine Sodium (Synthroid) 300 mcg PO ACB@0630 [facility] Last Admin: 06/29/18 05:42 Dose: 300 mcg Lorazepam (Ativan) 0.25 mg PO Q12 PRN PRN Reason: Anxiety Last Admin: 06/26/18 22:25 Dose: 0.25 mg Methylprednisolone (Solu-Medrol) 40 mg IVP Q12 [facility] Stop: 06/29/18 23:59 Last Admin: 06/29/18 09:39 Dose: 40 mg Methylprednisolone (Solu-Medrol) 30 mg IVP Q12 [facility] Multivitamins/Minerals (Therapeutic-M Tab) 1 tab PO DAILY [facility] Last Admin: 06/29/18 09:40 Dose: 1 tab Ondansetron HCl (Zofran Tab) 8 mg PO Q8 PRN PRN Reason: Nausea/Vomiting Prochlorperazine (Compazine Tab) 10 mg PO Q6 PRN PRN Reason: Nausea/Vomiting Sennosides (Senokot Tab) 8.6 mg PO Q12 [facility] Last Admin: 06/29/18 09:38 Dose: 8.6 mg Zolpidem Tartrate (Ambien) 5 mg PO HS [facility] Last Admin: 06/28/18 21:18 Dose: 5 mg - Labs Labs: 06/28/18 05:00 06/28/18 05:00 - Head Exam Head Exam: NORMAL INSPECTION - Eye Exam Eye Exam: Normal appearance - Respiratory Exam Respiratory Exam: Decreased Breath Sounds - Cardiovascular Exam Cardiovascular Exam: REGULAR RHYTHM - GI/Abdominal Exam GI & Abdominal Exam: Soft - Neurological Exam Neurological Exam: Awake Assessment and Plan (1) Acute bronchitis Status: Acute (2) Anemia Status: Chronic (3) Ovarian cancer Status: Chronic (4) 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
[2018-06-30 02:02] LABS: SQUAMOUS EPITHIAL 1 /hpf (0-5); URINE BILIRUBIN NEGATIVE (NEGATIVE); URINE BLOOD LARGE (NEGATIVE); URINE CLARITY SLIGHTY-CLOUDY (Clear); URINE COLOR YELLOW (YELLOW); URINE GLUCOSE (UA) NEG (Normal); URINE LEUKOCYTE ESTERASE NEG Leu/uL (Negative); URINE PROTEIN NEGATIVE (NEGATIVE); URINE UROBILINOGEN 0.2-1.0 mg/dL (0.2-1.0)
[2018-06-30] MEDS: Levothyroxine 50 MCG TAB PO SCH (06:29)
[2018-06-30] MEDS: Levothyroxine 150 MCG TAB PO SCH (06:30)
[2018-06-30 07:52] LABS: HEMOGLOBIN 8.5 g/dL (12.0-16.0); MEAN CELL VOLUME 93.8 fl (81.0-99.0); MEAN CORPUSCULAR HEMOGLOBIN 31.2 pg (27.0-31.0); MEAN CORPUSCULAR HGB CONC 33.2 g/dL (33.0-37.0); RBC 2.73 Mil/uL (3.80-5.20); RED CELL DISTRIBUTION WIDTH 19.9 % (11.5-14.5); WHITE BLOOD COUNT 5.5 K/uL (4.8-10.8)
[2018-06-30] MEDS: Albuterol-Ipratrop 3 mg / 0.5 (3 ml) UD INH SCH ×4 (08:06→19:35)
[2018-06-30 08:21] LABS: INR 1.3; PROTHROMBIN TIME 14.5 Seconds (9.8-13.1)
[2018-06-30 08:24] LABS: PARTIAL THROMBOPLASTIN TIME 32.9 Seconds (25.6-37.1)
[2018-06-30 08:40] LABS: BLOOD UREA NITROGEN 24 mg/dl (7-17); GFR NON-AFRICAN AMERICAN > 60
[2018-06-30] MEDS ORDERED: methylPREDNISolone 30 MG in Sodium Chloride 0.9% 50 ML IV SCH (09:00)
[2018-06-30] MEDS: Potassium Chloride 20 mEq ER Tab PO SCH (09:09)
[2018-06-30] MEDS: guaiFENesin-DM 600-30 mg ER Tab PO SCH ×2 (09:10→21:48)
[2018-06-30] MEDS: levoFLOXacin 500 mg in D5W 500 MG/100 ML BAG IVPB SCH (09:10)
[2018-06-30] MEDS: Multivitamin With Minerals Tab PO SCH (09:11)
[2018-06-30] MEDS: MethylPREDNISolone 40 mg Vial IVP SCH ×2 (09:17→22:00)
--- NOTE | 2018-06-30 22:41 | CP.PCM.PN ---
Subjective - Date & Time of Evaluation Date of Evaluation: 06/30/18 Time of Evaluation: 19:00 - Subjective Subjective: Facundo feels aa lot better today' Claims that she feels less congested since she was started on Lasix Noted decreased leg edema bilateral complains of right flank pain US showed cholelithiasis and right nephrolithiasis Has no fever. Noted low Hgb. Objective - Vital Signs/Intake and Output Vital Signs (last 24 hours): Temp Pulse Resp BP Pulse Ox 98.1 F 54 L 20 173/98 H 97 06/30/18 16:43 06/30/18 16:43 06/30/18 16:43 06/30/18 16:43 06/30/18 16:43 - Medications Medications: Current Medications Acetaminophen (Tylenol 325mg Tab) 650 mg PO Q6 PRN PRN Reason: Headache Last Admin: 06/29/18 06:03 Dose: 650 mg Albuterol/Ipratropium (Duoneb 3 Mg/0.5 Mg (3 Ml) Ud) 3 ml INH RQ4 PRN PRN Reason: Shortness of Breath Albuterol/Ipratropium (Duoneb 3 Mg/0.5 Mg (3 Ml) Ud) 3 ml INH RQID [facility] Last Admin: 06/30/18 19:35 Dose: 3 ml Apixaban (Eliquis) 5 mg PO Q12 [facility]; Protocol Last Admin: 06/30/18 21:46 Dose: 5 mg Benzonatate (Tessalon Perles) 200 mg PO Q8 PRN PRN Reason: Cough Last Admin: 06/30/18 04:01 Dose: 200 mg Cyanocobalamin (Vitamin B12 1000 Mcg/Ml Inj) 1,000 mcg IM DAILY [facility] Last Admin: 06/30/18 09:11 Dose: 1,000 mcg Cyclobenzaprine HCl (Flexeril) 10 mg PO HS [facility] Last Admin: 06/30/18 21:48 Dose: 10 mg Diphenhydramine HCl (Benadryl) 50 mg PO HS [facility] Last Admin: 06/29/18 23:18 Dose: 50 mg Epoetin Jonathan (Procrit) 20,000 unit SC MWF [facility] Ferrous Sulfate (Feosol) 325 mg PO BID [facility] Last Admin: 06/30/18 17:02 Dose: 325 mg Furosemide (Lasix) 40 mg PO DAILY [facility] Last Admin: 06/30/18 09:09 Dose: 40 mg Guaifenesin/Dextromethorphan (Mucinex-Dm 600-30 Mg) 2 tab PO Q12 [facility] Last Admin: 06/30/18 21:48 Dose: 2 tab Hydromorphone HCl (Dilaudid) 1 mg IVP Q4 PRN PRN Reason: Pain, severe (8-10) Last Admin: 06/30/18 17:01 Dose: 1 mg Levofloxacin/Dextrose (Levaquin 500mg) 500 mg in 100 mls @ 100 mls/hr IVPB DAILY [facility]; Protocol Last Admin: 06/30/18 09:10 Dose: 100 mls/hr Ketorolac Tromethamine (Toradol) 30 mg IVP Q6 PRN PRN Reason: Pain, moderate (4-7) Last Admin: 06/30/18 18:18 Dose: 30 mg Levothyroxine Sodium (Synthroid) 300 mcg PO ACB@0630 [facility] Last Admin: 06/30/18 06:30 Dose: 300 mcg Levothyroxine Sodium (Synthroid) 50 mcg PO DAILY@0630 [facility] Last Admin: 06/30/18 06:29 Dose: 50 mcg Lorazepam (Ativan) 0.25 mg PO Q12 PRN PRN Reason: Anxiety Last Admin: 06/26/18 22:25 Dose: 0.25 mg Losartan Potassium (Cozaar) 50 mg PO DAILY [facility] Methylprednisolone (Solu-Medrol) 30 mg IVP Q12 [facility] Last Admin: 06/30/18 22:00 Dose: 30 mg Multivitamins/Minerals (Therapeutic-M Tab) 1 tab PO DAILY [facility] Last Admin: 06/30/18 09:11 Dose: 1 tab Ondansetron HCl (Zofran Tab) 8 mg PO Q8 PRN PRN Reason: Nausea/Vomiting Potassium Chloride (K-Dur 20 Meq Er Tab) 20 meq PO DAILY [facility] Last Admin: 06/30/18 09:09 Dose: 20 meq Prochlorperazine (Compazine Tab) 10 mg PO Q6 PRN PRN Reason: Nausea/Vomiting Sennosides (Senokot Tab) 8.6 mg PO Q12 [facility] Last Admin: 06/30/18 21:46 Dose: 8.6 mg Zolpidem Tartrate (Ambien) 5 mg PO HS [facility] Last Admin: 06/29/18 23:18 Dose: 5 mg - Labs Labs: 06/30/18 06:00 06/30/18 06:00 PT 14.5 Seconds (9.8-13.1) H 06/30/18 06:00 INR 1.3 06/30/18 06:00 APTT 32.9 Seconds (25.6-37.1) 06/30/18 06:00 - Head Exam Head Exam: NORMAL INSPECTION - Eye Exam Eye Exam: Normal appearance - ENT Exam ENT Exam: Mucous Membranes Moist - Respiratory Exam Respiratory Exam: Decreased Breath Sounds - Cardiovascular Exam Cardiovascular Exam: REGULAR RHYTHM Assessment and Plan (1) Acute bronchitis Status: Acute (2) Anemia Status: Chronic (3) Ovarian cancer Status: Chronic (4) 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
[2018-07-01] MEDS: Levothyroxine 50 MCG TAB PO SCH (05:57)
[2018-07-01] MEDS: Levothyroxine 150 MCG TAB PO SCH (05:57)
[2018-07-01] MEDS: Albuterol-Ipratrop 3 mg / 0.5 (3 ml) UD INH SCH ×4 (07:54→19:32)
[2018-07-01] MEDS: levoFLOXacin 500 mg in D5W 500 MG/100 ML BAG IVPB SCH ×2 (07:57→09:52)
[2018-07-01] MEDS: guaiFENesin-DM 600-30 mg ER Tab PO SCH ×2 (08:01→22:33)
[2018-07-01] MEDS: Potassium Chloride 20 mEq ER Tab PO SCH (08:02)
[2018-07-01] MEDS: Multivitamin With Minerals Tab PO SCH (08:04)
[2018-07-01] MEDS: MethylPREDNISolone 40 mg Vial IVP SCH ×2 (08:05→22:32)
[2018-07-01] MEDS ORDERED: Epoetin Alfa 20000 UNIT/ML (RENAL DOSE) SC SCH (09:00)
--- NOTE | 2018-07-01 11:08 | CP.PCM.PN ---
Subjective - Date & Time of Evaluation Date of Evaluation: 07/01/18 Time of Evaluation: 11:06 - Subjective Subjective: Ambulated to bathroom with assist. Still has cough with sputum, but les purulent. Has begun to diurese with furosemide, feels better. Has remained afebrile, mildly hypertensive. Oxygenation is okay. Hemoglobin is stable at 8.5gm, renal function is good. Dependant edema is less tense, no cyanosis. Neck is supple and trachea miline. No dullness on chest percussion. Low pitched sonorous rhonchi are present bilaterally, L>R. No audible wheezes, no bronchial breath sounds. Heart sounds are distant, regular rhythm. Will reduce sokumedrol to 30MG OD tomorrow. Continue present antibiotic regimen. Aerosol therapy with DuoNeb. Objective - Vital Signs/Intake and Output Vital Signs (last 24 hours): Temp Pulse Resp BP Pulse Ox 98 F 63 20 147/89 93 L 07/01/18 08:30 07/01/18 08:30 07/01/18 08:30 07/01/18 08:30 07/01/18 08:30 - Medications Medications: Current Medications Acetaminophen (Tylenol 325mg Tab) 650 mg PO Q6 PRN PRN Reason: Headache Last Admin: 06/29/18 06:03 Dose: 650 mg Albuterol/Ipratropium (Duoneb 3 Mg/0.5 Mg (3 Ml) Ud) 3 ml INH RQ4 PRN PRN Reason: Shortness of Breath Last Admin: 07/01/18 05:22 Dose: 3 ml Albuterol/Ipratropium (Duoneb 3 Mg/0.5 Mg (3 Ml) Ud) 3 ml INH RQID [facility] Last Admin: 07/01/18 11:01 Dose: 3 ml Apixaban (Eliquis) 5 mg PO Q12 [facility]; Protocol Last Admin: 07/01/18 08:00 Dose: 5 mg Benzonatate (Tessalon Perles) 200 mg PO Q8 PRN PRN Reason: Cough Last Admin: 07/01/18 07:51 Dose: 200 mg Cyanocobalamin (Vitamin B12 1000 Mcg/Ml Inj) 1,000 mcg IM DAILY [facility] Last Admin: 07/01/18 08:04 Dose: 1,000 mcg Cyclobenzaprine HCl (Flexeril) 10 mg PO HS [facility] Last Admin: 06/30/18 21:48 Dose: 10 mg Diphenhydramine HCl (Benadryl) 50 mg PO HS [facility] Last Admin: 06/30/18 23:01 Dose: 50 mg Epoetin Jonathan (Procrit) 20,000 unit SC MWF [facility] Last Admin: 07/01/18 08:03 Dose: 20,000 unit Ferrous Sulfate (Feosol) 325 mg PO BID [facility] Last Admin: 07/01/18 08:02 Dose: 325 mg Furosemide (Lasix) 40 mg PO DAILY [facility] Last Admin: 07/01/18 08:02 Dose: 40 mg Guaifenesin/Dextromethorphan (Mucinex-Dm 600-30 Mg) 2 tab PO Q12 [facility] Last Admin: 07/01/18 08:01 Dose: 2 tab Hydromorphone HCl (Dilaudid) 1 mg IVP Q4 PRN PRN Reason: Pain, severe (8-10) Last Admin: 07/01/18 07:50 Dose: 1 mg Levofloxacin/Dextrose (Levaquin 500mg) 500 mg in 100 mls @ 100 mls/hr IVPB DAILY [facility]; Protocol Last Admin: 07/01/18 07:57 Dose: 100 mls/hr Ketorolac Tromethamine (Toradol) 30 mg IVP Q6 PRN PRN Reason: Pain, moderate (4-7) Last Admin: 06/30/18 18:18 Dose: 30 mg Levothyroxine Sodium (Synthroid) 300 mcg PO ACB@0630 [facility] Last Admin: 07/01/18 05:57 Dose: 300 mcg Levothyroxine Sodium (Synthroid) 50 mcg PO DAILY@0630 [facility] Last Admin: 07/01/18 05:57 Dose: 50 mcg Lorazepam (Ativan) 0.25 mg PO Q12 PRN PRN Reason: Anxiety Last Admin: 06/26/18 22:25 Dose: 0.25 mg Losartan Potassium (Cozaar) 50 mg PO DAILY [facility] Last Admin: 07/01/18 08:04 Dose: 50 mg Methylprednisolone (Solu-Medrol) 30 mg IVP Q12 [facility] Last Admin: 07/01/18 08:05 Dose: 30 mg Multivitamins/Minerals (Therapeutic-M Tab) 1 tab PO DAILY [facility] Last Admin: 07/01/18 08:04 Dose: 1 tab Ondansetron HCl (Zofran Tab) 8 mg PO Q8 PRN PRN Reason: Nausea/Vomiting Potassium Chloride (K-Dur 20 Meq Er Tab) 20 meq PO DAILY [facility] Last Admin: 07/01/18 08:02 Dose: 20 meq Prochlorperazine (Compazine Tab) 10 mg PO Q6 PRN PRN Reason: Nausea/Vomiting Sennosides (Senokot Tab) 8.6 mg PO Q12 [facility] Last Admin: 07/01/18 08:05 Dose: 8.6 mg - Labs Labs: 06/30/18 06:00 06/30/18 06:00 PT 14.5 Seconds (9.8-13.1) H 06/30/18 06:00 INR 1.3 06/30/18 06:00 APTT 32.9 Seconds (25.6-37.1) 06/30/18 06:00 Assessment and Plan (1) Acute bronchitis Status: Acute (2) Asthma exacerbation, non-allergic Status: Acute (3) Chronic venous insufficiency Status: Chronic (4) Anemia Status: Chronic (5) Ovarian cancer Status: Chronic (6) 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
--- NOTE | 2018-07-01 12:36 | CP.PCM.PN ---
Subjective - Date & Time of Evaluation Date of Evaluation: 07/01/18 Time of Evaluation: 11:00 - Subjective Subjective: patient seen and examined at bedside. no acute events overnight. chart reviewed. discussed with nursing staff. patient states she feels better though with sob at rest still with occasional cough and overall generalized weakness. no other complaints offered at this time. Objective - Vital Signs/Intake and Output Vital Signs (last 24 hours): Temp Pulse Resp BP Pulse Ox 98 F 63 20 147/89 93 L 07/01/18 08:30 07/01/18 08:30 07/01/18 08:30 07/01/18 08:30 07/01/18 08:30 - Medications Medications: Current Medications Acetaminophen (Tylenol 325mg Tab) 650 mg PO Q6 PRN PRN Reason: Headache Last Admin: 06/29/18 06:03 Dose: 650 mg Albuterol/Ipratropium (Duoneb 3 Mg/0.5 Mg (3 Ml) Ud) 3 ml INH RQ4 PRN PRN Reason: Shortness of Breath Last Admin: 07/01/18 05:22 Dose: 3 ml Albuterol/Ipratropium (Duoneb 3 Mg/0.5 Mg (3 Ml) Ud) 3 ml INH RQID [facility] Last Admin: 07/01/18 11:01 Dose: 3 ml Apixaban (Eliquis) 5 mg PO Q12 [facility]; Protocol Last Admin: 07/01/18 08:00 Dose: 5 mg Benzonatate (Tessalon Perles) 200 mg PO Q8 PRN PRN Reason: Cough Last Admin: 07/01/18 07:51 Dose: 200 mg Cyanocobalamin (Vitamin B12 1000 Mcg/Ml Inj) 1,000 mcg IM DAILY [facility] Last Admin: 07/01/18 08:04 Dose: 1,000 mcg Cyclobenzaprine HCl (Flexeril) 10 mg PO HS [facility] Last Admin: 06/30/18 21:48 Dose: 10 mg Diphenhydramine HCl (Benadryl) 50 mg PO HS [facility] Last Admin: 06/30/18 23:01 Dose: 50 mg Epoetin Jonathan (Procrit) 20,000 unit SC MWF [facility] Last Admin: 07/01/18 08:03 Dose: 20,000 unit Ferrous Sulfate (Feosol) 325 mg PO BID [facility] Last Admin: 07/01/18 08:02 Dose: 325 mg Furosemide (Lasix) 40 mg PO DAILY [facility] Last Admin: 07/01/18 08:02 Dose: 40 mg Guaifenesin/Dextromethorphan (Mucinex-Dm 600-30 Mg) 2 tab PO Q12 [facility] Last Admin: 07/01/18 08:01 Dose: 2 tab Hydromorphone HCl (Dilaudid) 1 mg IVP Q4 PRN PRN Reason: Pain, severe (8-10) Last Admin: 07/01/18 07:50 Dose: 1 mg Levofloxacin/Dextrose (Levaquin 500mg) 500 mg in 100 mls @ 100 mls/hr IVPB DAILY [facility]; Protocol Last Admin: 07/01/18 07:57 Dose: 100 mls/hr Ketorolac Tromethamine (Toradol) 30 mg IVP Q6 PRN PRN Reason: Pain, moderate (4-7) Last Admin: 06/30/18 18:18 Dose: 30 mg Levothyroxine Sodium (Synthroid) 300 mcg PO ACB@0630 [facility] Last Admin: 07/01/18 05:57 Dose: 300 mcg Levothyroxine Sodium (Synthroid) 50 mcg PO DAILY@0630 [facility] Last Admin: 07/01/18 05:57 Dose: 50 mcg Lorazepam (Ativan) 0.25 mg PO Q12 PRN PRN Reason: Anxiety Last Admin: 06/26/18 22:25 Dose: 0.25 mg Losartan Potassium (Cozaar) 50 mg PO DAILY [facility] Last Admin: 07/01/18 08:04 Dose: 50 mg Methylprednisolone (Solu-Medrol) 30 mg IVP Q12 [facility] Last Admin: 07/01/18 08:05 Dose: 30 mg Mirtazapine (Remeron) 7.5 mg PO HS [facility] Multivitamins/Minerals (Therapeutic-M Tab) 1 tab PO DAILY [facility] Last Admin: 07/01/18 08:04 Dose: 1 tab Ondansetron HCl (Zofran Tab) 8 mg PO Q8 PRN PRN Reason: Nausea/Vomiting Potassium Chloride (K-Dur 20 Meq Er Tab) 20 meq PO DAILY [facility] Last Admin: 07/01/18 08:02 Dose: 20 meq Prochlorperazine (Compazine Tab) 10 mg PO Q6 PRN PRN Reason: Nausea/Vomiting Sennosides (Senokot Tab) 8.6 mg PO Q12 [facility] Last Admin: 07/01/18 08:05 Dose: 8.6 mg - Labs Labs: 06/30/18 06:00 06/30/18 06:00 PT 14.5 Seconds (9.8-13.1) H 06/30/18 06:00 INR 1.3 06/30/18 06:00 APTT 32.9 Seconds (25.6-37.1) 06/30/18 06:00 - Constitutional Appears: Non-toxic, No Acute Distress - Head Exam Head Exam: NORMAL INSPECTION - Eye Exam Eye Exam: Normal appearance - Neck Exam Neck Exam: Normal Inspection - Respiratory Exam Respiratory Exam: Rhonchi, NORMAL BREATHING PATTERN - Cardiovascular Exam Cardiovascular Exam: +S1, +S2 - GI/Abdominal Exam GI & Abdominal Exam: Soft, Normal Bowel Sounds - Extremities Exam Extremities Exam: Normal Inspection - Neurological Exam Neurological Exam: Alert, Awake, Oriented x3 - Psychiatric Exam Psychiatric exam: Normal Affect, Normal Mood - Skin Skin Exam: Normal Color, Warm Assessment and Plan - Assessment and Plan (Free Text) Assessment: 58 year old female with a PMHx of asthma, bowel obstruction, ovarian cancer, pneumonia and bronchitis admitted with severe sob and hypercapnia. found to have UTI as well plan c/w meds as ordered taper steroids urine cx growing g+ c/w levaquin at this time if continues to improve, consider dispo planning as patient scheduled for chemotherapy sunday.
--- NOTE | 2018-07-01 19:41 | CP.PCM.CON ---
Past Patient History - Infectious Disease Hx of Infectious Diseases: None - Past Medical History & Family History Past Medical History?: Yes - Past Social History Smoking Status: Never Smoked Chewing Tobacco Use: No Cigar Use: No Alcohol: Social Drugs: Denies Home Situation {Lives}: Alone - CARDIAC Hx Cardiac Disorders: No - PULMONARY Hx Asthma: Yes Hx Bronchitis: Yes Hx Pneumonia: Yes (multiple times) Hx Pulmonary Embolism: No Hx Sleep Apnea: No - NEUROLOGICAL Hx Neurological Disorder: No - HEENT Hx HEENT Problems: No - RENAL Hx Chronic Kidney Disease: No - ENDOCRINE/METABOLIC Hx Hypothyroidism: Yes - HEMATOLOGICAL/ONCOLOGICAL Hx Anemia: Yes Hx Cancer: Yes (ovarian-recurrent/metastatic) - INTEGUMENTARY Hx Dermatological Problems: No - MUSCULOSKELETAL/RHEUMATOLOGICAL Hx Arthritis: Yes (knee) Hx Falls: No - GASTROINTESTINAL Other/Comment: Bariatric surgery - GENITOURINARY/GYNECOLOGICAL Hx Genitourinary Disorders: No - PSYCHIATRIC Hx Psychophysiologic Disorder: No Hx Substance Use: No - SURGICAL HISTORY Hx Surgeries: Yes Hx Gastric Bypass Surgery: Yes (Sleeve) Hx Herniorrhaphy: Yes Other/Comment: bowel/hernia surgery-06/11/18 - ANESTHESIA Hx Anesthesia: Yes Hx Anesthesia Reactions: No Hx Malignant Hyperthermia: No Meds Allergies/Adverse Reactions: Allergies Allergy/AdvReac Type Severity Reaction Status Date / Time cefepime Allergy SHORTNESS Verified 06/26/18 12:55 OF BREATH - Medications Medications: Current Medications Acetaminophen (Tylenol 325mg Tab) 650 mg PO Q6 PRN PRN Reason: Headache Last Admin: 06/29/18 06:03 Dose: 650 mg Albuterol/Ipratropium (Duoneb 3 Mg/0.5 Mg (3 Ml) Ud) 3 ml INH RQ4 PRN PRN Reason: Shortness of Breath Last Admin: 07/01/18 05:22 Dose: 3 ml Albuterol/Ipratropium (Duoneb 3 Mg/0.5 Mg (3 Ml) Ud) 3 ml INH RQID [facility] Last Admin: 07/01/18 19:32 Dose: 3 ml Apixaban (Eliquis) 5 mg PO Q12 [facility]; Protocol Last Admin: 07/01/18 08:00 Dose: 5 mg Benzonatate (Tessalon Perles) 200 mg PO Q8 PRN PRN Reason: Cough Last Admin: 07/01/18 07:51 Dose: 200 mg Cyanocobalamin (Vitamin B12 1000 Mcg/Ml Inj) 1,000 mcg IM DAILY [facility] Last Admin: 07/01/18 08:04 Dose: 1,000 mcg Cyclobenzaprine HCl (Flexeril) 10 mg PO [facility] Last Admin: 06/30/18 21:48 Dose: 10 mg Diphenhydramine HCl (Benadryl) 50 mg PO HS [facility] Last Admin: 06/30/18 23:01 Dose: 50 mg Epoetin Jonathan (Procrit) 20,000 unit SC [facility] Last Admin: 07/01/18 08:03 Dose: 20,000 unit Ferrous Sulfate (Feosol) 325 mg PO BID [facility] Last Admin: 07/01/18 08:02 Dose: 325 mg Furosemide (Lasix) 40 mg PO DAILY [facility] Last Admin: 07/01/18 08:02 Dose: 40 mg Guaifenesin/Dextromethorphan (Mucinex-Dm 600-30 Mg) 2 tab PO Q12 [facility] Last Admin: 07/01/18 08:01 Dose: 2 tab Hydromorphone HCl (Dilaudid) 1 mg IVP Q4 PRN PRN Reason: Pain, severe (8-10) Last Admin: 07/01/18 15:55 Dose: 1 mg Levofloxacin/Dextrose (Levaquin 500mg) 500 mg in 100 mls @ 100 mls/hr IVPB DAILY [facility]; Protocol Last Admin: 07/01/18 09:52 Dose: Not Given Ketorolac Tromethamine (Toradol) 30 mg IVP Q6 PRN PRN Reason: Pain, moderate (4-7) Last Admin: 06/30/18 18:18 Dose: 30 mg Levothyroxine Sodium (Synthroid) 300 mcg PO ACB@0630 [facility] Last Admin: 07/01/18 05:57 Dose: 300 mcg Levothyroxine Sodium (Synthroid) 50 mcg PO DAILY@0630 [facility] Last Admin: 07/01/18 05:57 Dose: 50 mcg Losartan Potassium (Cozaar) 50 mg PO DAILY [facility] Last Admin: 07/01/18 08:04 Dose: 50 mg Methylprednisolone (Solu-Medrol) 30 mg IVP Q12 [facility] Last Admin: 07/01/18 08:05 Dose: 30 mg Mirtazapine (Remeron) 7.5 mg PO [facility] Multivitamins/Minerals (Therapeutic-M Tab) 1 tab PO DAILY [facility] Last Admin: 07/01/18 08:04 Dose: 1 tab Ondansetron HCl (Zofran Tab) 8 mg PO Q8 PRN PRN Reason: Nausea/Vomiting Potassium Chloride (K-Dur 20 Meq Er Tab) 20 meq PO DAILY [facility] Last Admin: 07/01/18 08:02 Dose: 20 meq Prochlorperazine (Compazine Tab) 10 mg PO Q6 PRN PRN Reason: Nausea/Vomiting Sennosides (Senokot Tab) 8.6 mg PO Q12 [facility] Last Admin: 07/01/18 08:05 Dose: 8.6 mg Results - Vital Signs Recent Vital Signs: Last Vital Signs Temp 98.4 F 07/01/18 19:26 Pulse 62 07/01/18 19:26 Resp 20 07/01/18 19:26 BP 142/73 07/01/18 19:26 Pulse Ox 95 07/01/18 19:26 - Labs Result Diagrams: 06/30/18 06:00 06/30/18 06:00
--- NOTE | 2018-07-01 19:41 | CP.PCM.CON ---
History of Present Illness - History of Present Illness History of Present Illness: I was asked to see patient by Dr Santos. full consult to follow. Bradycardia has resolved. currently NSR. continue conservative therapy. will place holter monitor as outpatient. Past Patient History - Infectious Disease Hx of Infectious Diseases: None - Past Medical History & Family History Past Medical History?: Yes - Past Social History Smoking Status: Never Smoked Chewing Tobacco Use: No Cigar Use: No Alcohol: Social Drugs: Denies Home Situation {Lives}: Alone - CARDIAC Hx Cardiac Disorders: No - PULMONARY Hx Asthma: Yes Hx Bronchitis: Yes Hx Pneumonia: Yes (multiple times) Hx Pulmonary Embolism: No Hx Sleep Apnea: No - NEUROLOGICAL Hx Neurological Disorder: No - HEENT Hx HEENT Problems: No - RENAL Hx Chronic Kidney Disease: No - ENDOCRINE/METABOLIC Hx Hypothyroidism: Yes - HEMATOLOGICAL/ONCOLOGICAL Hx Anemia: Yes Hx Cancer: Yes (ovarian-recurrent/metastatic) - INTEGUMENTARY Hx Dermatological Problems: No - MUSCULOSKELETAL/RHEUMATOLOGICAL Hx Arthritis: Yes (knee) Hx Falls: No - GASTROINTESTINAL Other/Comment: Bariatric surgery - GENITOURINARY/GYNECOLOGICAL Hx Genitourinary Disorders: No - PSYCHIATRIC Hx Psychophysiologic Disorder: No Hx Substance Use: No - SURGICAL HISTORY Hx Surgeries: Yes Hx Gastric Bypass Surgery: Yes (Sleeve) Hx Herniorrhaphy: Yes Other/Comment: bowel/hernia surgery-06/11/18 - ANESTHESIA Hx Anesthesia: Yes Hx Anesthesia Reactions: No Hx Malignant Hyperthermia: No Meds Allergies/Adverse Reactions: Allergies Allergy/AdvReac Type Severity Reaction Status Date / Time cefepime Allergy SHORTNESS Verified 06/26/18 12:55 OF BREATH - Medications Medications: Current Medications Acetaminophen (Tylenol 325mg Tab) 650 mg PO Q6 PRN PRN Reason: Headache Last Admin: 06/29/18 06:03 Dose: 650 mg Albuterol/Ipratropium (Duoneb 3 Mg/0.5 Mg (3 Ml) Ud) 3 ml INH RQ4 PRN PRN Reason: Shortness of Breath Last Admin: 07/01/18 05:22 Dose: 3 ml Albuterol/Ipratropium (Duoneb 3 Mg/0.5 Mg (3 Ml) Ud) 3 ml INH RQID [facility] Last Admin: 07/01/18 19:32 Dose: 3 ml Apixaban (Eliquis) 5 mg PO Q12 [facility]; Protocol Last Admin: 07/01/18 08:00 Dose: 5 mg Benzonatate (Tessalon Perles) 200 mg PO Q8 PRN PRN Reason: Cough Last Admin: 07/01/18 07:51 Dose: 200 mg Cyanocobalamin (Vitamin B12 1000 Mcg/Ml Inj) 1,000 mcg IM DAILY [facility] Last Admin: 07/01/18 08:04 Dose: 1,000 mcg Cyclobenzaprine HCl (Flexeril) 10 mg PO HS [facility] Last Admin: 06/30/18 21:48 Dose: 10 mg Diphenhydramine HCl (Benadryl) 50 mg PO HS [facility] Last Admin: 06/30/18 23:01 Dose: 50 mg Epoetin Jonathan (Procrit) 20,000 unit SC [facility] Last Admin: 07/01/18 08:03 Dose: 20,000 unit Ferrous Sulfate (Feosol) 325 mg PO BID [facility] Last Admin: 07/01/18 08:02 Dose: 325 mg Furosemide (Lasix) 40 mg PO DAILY [facility] Last Admin: 07/01/18 08:02 Dose: 40 mg Guaifenesin/Dextromethorphan (Mucinex-Dm 600-30 Mg) 2 tab PO Q12 [facility] Last Admin: 07/01/18 08:01 Dose: 2 tab Hydromorphone HCl (Dilaudid) 1 mg IVP Q4 PRN PRN Reason: Pain, severe (8-10) Last Admin: 07/01/18 15:55 Dose: 1 mg Levofloxacin/Dextrose (Levaquin 500mg) 500 mg in 100 mls @ 100 mls/hr IVPB DAILY [facility]; Protocol Last Admin: 07/01/18 09:52 Dose: Not Given Ketorolac Tromethamine (Toradol) 30 mg IVP Q6 PRN PRN Reason: Pain, moderate (4-7) Last Admin: 06/30/18 18:18 Dose: 30 mg Levothyroxine Sodium (Synthroid) 300 mcg PO ACB@0630 [facility] Last Admin: 07/01/18 05:57 Dose: 300 mcg Levothyroxine Sodium (Synthroid) 50 mcg PO DAILY@0630 [facility] Last Admin: 07/01/18 05:57 Dose: 50 mcg Losartan Potassium (Cozaar) 50 mg PO DAILY [facility] Last Admin: 07/01/18 08:04 Dose: 50 mg Methylprednisolone (Solu-Medrol) 30 mg IVP Q12 [facility] Last Admin: 07/01/18 08:05 Dose: 30 mg Mirtazapine (Remeron) 7.5 mg PO HS [facility] Multivitamins/Minerals (Therapeutic-M Tab) 1 tab PO DAILY [facility] Last Admin: 07/01/18 08:04 Dose: 1 tab Ondansetron HCl (Zofran Tab) 8 mg PO Q8 PRN PRN Reason: Nausea/Vomiting Potassium Chloride (K-Dur 20 Meq Er Tab) 20 meq PO DAILY [facility] Last Admin: 07/01/18 08:02 Dose: 20 meq Prochlorperazine (Compazine Tab) 10 mg PO Q6 PRN PRN Reason: Nausea/Vomiting Sennosides (Senokot Tab) 8.6 mg PO Q12 [facility] Last Admin: 07/01/18 08:05 Dose: 8.6 mg Results - Vital Signs Recent Vital Signs: Last Vital Signs Temp 98.4 F 07/01/18 19:26 Pulse 62 07/01/18 19:26 Resp 20 07/01/18 19:26 BP 142/73 07/01/18 19:26 Pulse Ox 95 07/01/18 19:26 - Labs Result Diagrams: 06/30/18 06:00 06/30/18 06:00
[2018-07-02] MEDS: Levothyroxine 150 MCG TAB PO SCH (05:46)
[2018-07-02] MEDS: Levothyroxine 50 MCG TAB PO SCH (05:46)
[2018-07-02] MEDS: Albuterol-Ipratrop 3 mg / 0.5 (3 ml) UD INH SCH ×2 (07:18→11:19)
[2018-07-02 08:32] VITALS: RESP 20
[2018-07-02] MEDS: Potassium Chloride 20 mEq ER Tab PO SCH (08:52)
[2018-07-02] MEDS: levoFLOXacin 500 mg in D5W 500 MG/100 ML BAG IVPB SCH (08:54)
[2018-07-02] MEDS: guaiFENesin-DM 600-30 mg ER Tab PO SCH (08:54)
[2018-07-02] MEDS: MethylPREDNISolone 40 mg Vial IVP SCH (08:55)
[2018-07-02] MEDS: Multivitamin With Minerals Tab PO SCH (08:56)
[2018-07-02 12:25] VITALS: BP 128/72; PULSE 58; TEMP 97.3; O2SAT 94
== END 2018-07-02 13:18 | disposition home health service (06) | DRG 202 ==
LOC: H.ER 12:31 → H.ERHOLD 14:56 → H.TEL 18:37
PROVIDERS: ADMIT Family Medicine; ATTEND Family Medicine
PROC: 3E0F7GC Introduction of Other Therapeutic Substance into Respiratory Tract, Via Natural or Artificial Opening (ICD-10-PCS; principal; 2018-06-26)
PROC: 3E0F73Z Introduction of Anti-inflammatory into Respiratory Tract, Via Natural or Artificial Opening (ICD-10-PCS; 2018-06-26)
DX: J45.901 Unspecified asthma with (acute) exacerbation (principal); E66.2 Morbid (severe) obesity with alveolar hypoventilation; Z68.45 Body mass index [BMI] 70 or greater, adult; C56.9 Malignant neoplasm of unspecified ovary; N39.0 Urinary tract infection, site not specified; J20.9 Acute bronchitis, unspecified; B95.2 Enterococcus as the cause of diseases classified elsewhere; I87.2 Venous insufficiency (chronic) (peripheral); E03.9 Hypothyroidism, unspecified; E78.5 Hyperlipidemia, unspecified; I10 Essential (primary) hypertension; D64.9 Anemia, unspecified; K80.20 Calculus of gallbladder without cholecystitis without obstruction; N20.0 Calculus of kidney; M17.11 Unilateral primary osteoarthritis, right knee; Z98.84 Bariatric surgery status; Z86.711 Personal history of pulmonary embolism; Z87.01 Personal history of pneumonia (recurrent); Z79.01 Long term (current) use of anticoagulants